=== PATIENT | female | born 1945 | race Caucasian/White ===

== ENCOUNTER → 2018-04-07 | Outpatient (CLI) | payer MEDICARE, OTHER ==
[~2018-04-07] MED LIST: AMLO2.5T PO; ASCO10004 PO; CA C1TAB60 PO; CHOL10002 PO; FLUT16SP2 INH; GADOBUTROL 7.5 MMOL/7.5 ML PFS ONE; KETO5DRO70 OP; LOSA100T6 PO; MAGN300C PO; MECL25TA4 PO; OMEG-14 PO; OMEP-110 PO; OXCA150T PO; RALO60TA PO; SUMA100T3 PO; THYR60TA PO; TOPI50TA8 PO; VIT1TABL32 PO; VITA400C43 PO
== END | disposition home or self-care (01) ==
LOC: CFH 14:26
PROVIDERS: ATTEND Psychiatry & Neurology Neurology
DX: G31.9 Degenerative disease of nervous system, unspecified (principal); D17.79 Benign lipomatous neoplasm of other sites; R41.3 Other amnesia; R41.0 Disorientation, unspecified
CPT/HCPCS: 70553; A9585

== ENCOUNTER → 2018-06-28 | Outpatient (CLI) | payer MEDICARE, OTHER ==
[~2018-06-28] MED LIST changes: -AMLO2.5T PO; +AMLO2.5T3 PO; -GADOBUTROL 7.5 MMOL/7.5 ML PFS ONE; -LOSA100T6 PO; +LOSA100T7 PO; -OXCA150T PO; +OXCA150T18 PO
== END | disposition home or self-care (01) ==
LOC: CFH 11:02
PROVIDERS: ATTEND Internal Medicine
DX: Z12.31 Encounter for screening mammogram for malignant neoplasm of breast (principal)
CPT/HCPCS: 77067

== ENCOUNTER 2019-03-06 14:18 | Emergency (ER) | payer MEDICARE, OTHER ==
[~2019-03-06] VITALS: Ht 167.6 cm; Wt 61.6 kg
[~2019-03-06 14:18] MED LIST changes: -AMLO2.5T3 PO; +AMLO2.5T5 PO; +LOSA100T14 PO; -LOSA100T7 PO
[2019-03-06 14:23] VITALS: BP 168/97
== END 2019-03-06 16:09 | disposition home or self-care (01) ==
LOC: ED 15:47
DX: S90.32XA Contusion of left foot, initial encounter (principal); W20.8XXA Other cause of strike by thrown, projected or falling object, initial encounter; Y93.89 Activity, other specified; Y92.89 Other specified places as the place of occurrence of the external cause; Y99.8 Other external cause status
CPT/HCPCS: 99283

== ENCOUNTER 2021-05-01 10:36 | Outpatient (CLI) | payer MEDICARE ==
[~2021-05-01 10:36] MED LIST changes: +ASCO100018 PO; -ASCO10004 PO; +MECL-101 PO; -MECL25TA4 PO
[2021-05-01 11:10] LABS: ALBUMIN 3.8 g/dL (3.4-5.0); ANION GAP 8 mmol/L (5-15); CALCIUM 9.9 mg/dL (8.5-10.1); CHLORIDE 105 mmol/L (98-107)
[2021-05-01 11:14] LABS: ALANINE AMINOTRANSFERASE 16 U/L (12-78); ALKALINE PHOSPHATASE 102 U/L (45-117); BILIRUBIN,TOTAL 0.5 mg/dL (0.2-1.0); CREATININE 0.92 mg/dL (0.55-1.02); TOTAL PROTEIN 7.8 g/dL (6.4-8.2)
== END 2021-05-01 23:59 | disposition home or self-care (01) ==
LOC: LAB 10:36
PROVIDERS: ATTEND Internal Medicine
DX: M81.0 Age-related osteoporosis without current pathological fracture (principal)
CPT/HCPCS: 36415; 80053